=== PATIENT | female | born 1940 | race Caucasian/White ===

== ENCOUNTER 2023-02-05 07:25 | Outpatient (AMB) | payer MEDICARE, SELFPAY ==
--- NOTE | 2023-02-05 07:36 | MHC.PC.OV ---
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 Dementia Intake Note: New patient , mild dementia Rewards Consultant Required: No Accompanied by: Son Allergies No Known Allergies Allergy (Verified 02/05/23 07:54) Medication List - Last Reconciled 02/05/23 by Kathy Shah MD denosumab (Prolia) 60 mg subcut [id number] donepezil 5 mg PO DAILY latanoprost 0.005% 1 drp ophthalmic (eye) DAILY lisinopril 10 mg PO DAILY 30 days omeprazole 40 mg PO DAILY polyethylene glycol 3350 (Miralax) 17 grams PO DAILY PRN 30 days Tobacco use date assessed: 02/05/23 Fall risk assessment: No Falls in past year Last assessed Fall Risk: 02/05/23 Dental Screening Dental Screen Date: 02/05/23 Did you have a dental visit in the last 12 months?: No Did you have a dental problem in the last 6 months where you did not have access to dental care?: No Was dental information given to patient?: No HPI HPI Comments History of Present Illness Details This is an 82-year-old female with hypertension, chronic GERD, chronic idiopathic constipation, osteoporosis, urge urinary incontinence and dementia that comes today accompanied by son which is her healthcare proxy to establish care. She lives in assisted living and is not compliant with her medications because she does not remember to take them. Blood pressure borderline. GERD stable with PPIs. Has constipation with less than 3 bowel movements per week and MiraLax works for her. Has osteoporosis and last Prolia dose was 2 weeks ago. Son does not recall when was the last bone density test. I will refer her to Rheumatology. Has urge urinary incontinence and wear liners. She is oriented only to person but not to time or place. [facility] Surgical History (Updated 02/05/23 @ 08:02 by Kathy Shah MD) History of cholecystectomy Family History (Updated 02/05/23 @ 08:08 by Kathy Shah MD) Mother No problems noted. Father No problems noted. Son Papillary carcinoma of thyroid Basal cell carcinoma of skin Social History (Updated 02/05/23 @ 08:08 by Kathy Shah MD) Housing: House Alcohol intake: current Alcohol intake frequency: holidays/special occasions only Alcohol type: wine Patient Tobacco Use Status: Former Tobacco user e-Cigarette/Vaping Use: Never Used Second Hand Smoke Exposure: No service: No Current occupational status: unemployed Cognitive needs: No Hearing needs: No Vision needs: Yes Questionnaire PHQ-9 Over the last 2 weeks, how often have you been bothered by any of the following problems? 1. Little interest or pleasure in doing things: not at all 2. Feeling down, depressed, or hopeless: not at all 3. Trouble falling or staying asleep, or sleeping too much: not at all 4. Feeling tired or having little energy: not at all 5. Poor appetite or overeating: not at all 6. Feeling bad about yourself - or that you are a failure or have let yourself or your family down: not at all 7. Trouble concentrating on things, such as reading the newspaper or watching television: not at all 8. Moving or speaking so slowly that other people could have noticed. Or the opposite - being so fidgety or restless that you have been moving around a lot more than usual: not at all 9. Thoughts that you would be better off or of hurting yourself in some way: not at all Total score: 0 Depression Screening Interpretation: Negative 37713 - PHQ-9 Billing: Yes Source: Developed by Drs. Larry Dumont, Josette Shah, Chau Bill and colleagues, with an educational stefanie from [employer]. Thrive Questionnaire Date Thrive assessed: 02/05/23 I am a: Patient What is your living situation today?: I have a steady place to live Within the past 12 months, did the food you bought not last and you didn't have the money to get more?: Never true Within the past 12 months, did you worry whether your food would run out before you got money to buy more?: Never true Do you have trouble paying for medicines?: No Do you have trouble getting transportation to medical appointments?: No Do you have trouble paying your heating and electricity bill?: No Do you have trouble taking care of your child, family member or friend?: No Do you have trouble with day-to-day activities such as bathing, preparing meals, shopping, managing finances, etc.?: No Are you currently unemployed and looking for a job?: No Are you interested in more education?: No Please select the resources that you would like help with: None Currently or been in a relationship where the following occur: no concerns reported AUDIT C Alcohol Use Questionnaire (AUDIT-C) 1. How often do you have a drink containing alcohol?: Monthly or less 2. How many drinks containing alcohol do you have on a typical day when you are drinking?: 1 or 2 3. How often do you have six or more drinks on one occasion?: Never Total Score: 1 Score Reviewed/Action Taken: No YURIY-7 AMB Questionnaire YURIY-7 Date YURIY - 7 assessed: 02/05/23 Feeling nervous, anxious, or on edge: 0 = Not at all Not being able to stop or control worryin = Not at all Worrying too much about different things: 0 = Not at all Trouble relaxin = Not at all Being so restless that it is hard to sit still: 0 = Not at all Becoming easily annoyed or irritable: 0 = Not at all Feeling afraid as if something awful might happen: 0 = Not at all Total YURIY-7 score (0-4 normal; 5-9 mild; 10-14 moderate; 15-21 severe): 0 Source: Developed by Drs. Larry Dumont, Josette Shah, Chau Bill and colleagues, with an educational stefanie from [employer]. YURIY-7 Assessment Billing YURIY-7 Assessment Tool: YURIY-7 Assessment 24878 Review of Systems Const All systems reviewed & are unremarkable except as noted in HPI and below Eyes Reports no additional complaints, Denies change in vision and Denies other visual disturbances ENT Reports hearing loss Card Denies chest pain at rest, Denies chest pain with activity, Denies edema, Denies irregular heart rhythm, Denies claudication, Denies dyspnea, Denies dyspnea on exertion, Denies orthopnea, Denies paroxysmal nocturnal dyspnea and Denies slow heart rate Resp Denies cough, Denies dyspnea and Denies dyspnea on exertion GI Denies abdominal pain, Denies change in bowel habits, Denies excessive flatus, Denies nausea and Denies vomiting Reports urinary incontinence, Denies urinary hesitancy and Denies urinary urgency Musc Denies abnormal gait, Denies atrophy, Denies deformity and Denies limited range of motion Skin/Breast Denies bleeding lesions, Denies changing lesions and Denies rash Neuro Denies abnormal gait, Denies lack of coordination and Reports memory loss Psych Reports memory loss Physical exam (Primary Care) Vital Signs: Last Vital Signs BP 140/80 H 02/05/23 09:12 BMI result Body Mass Index 25.0 Tobacco/Smoking Status: Tobacco use Status Tobacco use date assessed 02/05/23 02/05/23 07:50 Patient Tobacco Use Status Former Tobacco user 02/05/23 08:08 e-Cigarette/Vaping Use Never Used 02/05/23 08:08 PHQ-9: PHQ-9 Score PHQ-9: Total score 0 02/05/23 09:12 Depression Screening Interpretation: Negative Thrive Assessment: Date of Thrive Assessment Date Thrive assessed 02/05/23 02/05/23 07:50 Currently or been in a relationship where the following occur: no concerns reported Const Orientation/consciousness: patient oriented x3 Eyes General: appearance normal, both eyes and all related structures Eyelids: Yes eyelids normal Conjunctivae: conjunctivae normal Neck Neck: Yes normal visual inspection and Yes supple Resp Effort & Inspection: normal respiratory effort Auscultation: clear to auscultation bilaterally Cardio Jugular venous distension: no JVD Rate: regular rate Rhythm: regular rhythm Heart sounds: S1 normal heart sound present and S2 normal heart sound present Neuro General: patient oriented x3 and no focal motor deficits Extrem General: Yes full ROM Office Procedures Advance Care Planning Advance Care Planning discussion: Exists, not on file Date of discussion: 02/05/23 Who was present: Son, patient and me Forms completed: Health Care Proxy Time spent: 1-15 minutes, on File Actual minutes spent: 2 Assessment and Plan Assessment & Plan (1) Dementia: Code(s): F03.90 - Unspecified dementia, unspecified severity, without behavioral disturbance, psychotic disturbance, mood disturbance, and anxiety Plan: Continue donepezil. Referred to neurology. (2) Chronic GERD: Code(s): K21.9 - Gastro-esophageal reflux disease without esophagitis Plan: Continue PPIs (3) Essential hypertension: Code(s): I10 - Essential (primary) hypertension Plan: Continue lisinopril. Blood pressure goal is equal or less than 130/80. (4) Chronic idiopathic constipation: Code(s): K59.04 - Chronic idiopathic constipation Plan: Restart MiraLax as needed. (5) Urge urinary incontinence: Code(s): N39.41 - Urge incontinence Plan: Continue liner pads 3 times a day as needed. (6) Osteoporosis: Code(s): M81.0 - Age-related osteoporosis without current pathological fracture Plan: Referred to rheumatology. Orders: Orders Lipid Panel Today I10 - Essential (primary) hypertension Comprehensive [place]. Panel Fast Today I10 - Essential (primary) hypertension Complete Blood Count Auto Diff Today D64.9 - Anemia, unspecified, F03.90 - Unspecified dementia, unspecified severity, without behavioral disturbance, psychotic disturbance, mood disturbance, and anxiety Vitamin B12 and Folate Today E53.8 - Deficiency of other specified B group vitamins, F03.90 - Unspecified dementia, unspecified severity, without behavioral disturbance, psychotic disturbance, mood disturbance, and anxiety Thyroid Stimulating Hormone Today F03.90 - Unspecified dementia, unspecified severity, without behavioral disturbance, psychotic disturbance, mood disturbance, and anxiety Vitamin D 25-OH Total Today E55.9 - Vitamin D deficiency, unspecified, M81.0 - Age-related osteoporosis without current pathological fracture Referrals Rheumatology Referral M81.0 - Age-related osteoporosis without current pathological fracture Ophthalmology Referral H40.9 - Unspecified glaucoma Neurology Referral F03.90 - Unspecified dementia, unspecified severity, without behavioral disturbance, psychotic disturbance, mood disturbance, and anxiety Medications: New polyethylene glycol 3350 (Miralax) 17 grams PO DAILY 30 days PRN 510 grams 2RF constipation lisinopril 10 mg PO DAILY 30 days 30 tabs 2RF incontinence pad, liner, disp Use 1 pad three times a day 90 ea 11RF N39.41 - Urge incontinence Coding Level of Care Code New Pt Level 4 (54494) Diagnoses Dementia F03.90 Chronic GERD K21.9 Essential hypertension I10 Chronic idiopathic constipation K59.04 Urge urinary incontinence N39.41 Osteoporosis M81.0 CPT Codes Advance Care Planning - Time spent: 1-15 minutes, on File ([id number]) Additional Codes YURIY-7 Assessment Billing - YURIY-7 Assessment Tool: YURIY-7 Assessment 00658 ([id number]) Time Spent (min) 23
[2023-02-05 07:38] VITALS: BP 160/90; BMI 25.0
[2023-02-05 09:12] VITALS: BP 140/80
== END 2023-02-05 08:28 | disposition home or self-care (01) ==
PROVIDERS: PCP Internal Medicine; Visit Provider Internal Medicine
DX: F03.90 Unspecified dementia, unspecified severity, without behavioral disturbance, psychotic disturbance, mood disturbance, and anxiety (principal); K21.9 Gastro-esophageal reflux disease without esophagitis; I10 Essential (primary) hypertension; K59.04 Chronic idiopathic constipation; N39.41 Urge incontinence; M81.0 Age-related osteoporosis without current pathological fracture; Z71.89 Other specified counseling
CPT/HCPCS: 1123F; 99204

== ENCOUNTER 2023-09-19 17:10 | Outpatient (AMB) | payer MEDICARE, SELFPAY ==
--- NOTE | 2023-09-19 17:22 | A.OFFVIS_ITS ---
Intake Vital Signs 09/19/23 17:23 Height 5 ft Weight 135 lb BMI 26.4 BP 152/90 H Blood Pressure Location Lt brachial Position Sitting Pulse 67 Pulse Source Pulse Oximeter Pulse Oximetry (%) 97 Oxygen Delivery Method Room Air Intake Visit Reasons: AWV Intake Note: Patient here for an annual wellness visit Drug Safety Data Management Specialist Required: No Accompanied by: Son Allergies No Known Allergies Allergy (Verified 09/19/23 17:34) Medication List - Last Reconciled 09/19/23 by Kathy Shah MD donepezil 5 mg PO DAILY incontinence pad, liner, disp Use 1 pad three times a day latanoprost 0.005% 1 drp ophthalmic (eye) DAILY 30 days lisinopril 10 mg PO DAILY 90 days olanzapine 2.5 mg PO BEDTIME 90 days omeprazole 40 mg PO DAILY polyethylene glycol 3350 (Miralax) 17 grams PO DAILY PRN 30 days HPI HPI Comments History of Present Illness Details This is an 83 year old female that comes accompanied by her son which is her [facility] proxy for her annual wellness exam. She currently lives in assisted living. PPP handed to gang head saw operator which is the main historian. No acute complaints. Walks with a cane. She has dementia and is not oriented to time or person but she is aware she is in [place], [place]. BP elevated today and staff member from her place give her the medications. [facility] Surgical History History of cholecystectomy Family History Mother No problems noted. Father No problems noted. Son Papillary carcinoma of thyroid Basal cell carcinoma of skin Social History Housing: House Alcohol intake: current Alcohol intake frequency: holidays/special occasions only Alcohol type: wine Patient Tobacco Use Status: Former Tobacco user e-Cigarette/Vaping Use: Never Used Second Hand Smoke Exposure: No service: No Current occupational status: unemployed Cognitive needs: No Hearing needs: No Vision needs: Yes Questionnaire Medicare Wellness Checkup What is your age?: 82 or older What gender do you identify with?: female During the past 4 weeks, how much have you been bothered by emotional problems such as feeling anxious, depressed, irritable, sad or downhearted, and blue?: not at all During the past 4 weeks, has your physical & emotional health limited your social activities with family, friends, neighbors, or groups?: not at all During the past 4 weeks, how much bodily pain have you generally had?: no pain During the past 4 weeks, was someone available to help you if you needed & wanted help?: yes, as much as I wanted During the past 4 weeks, what was the hardest physical activity you could do for at least 2 minutes?: very light Can you get to places out of walking distance without help? (For eg., can you travel alone on buses, taxis or drive your car?): No Can you go shopping for groceries or clothes without someone's help?: No Can you do your housework without help?: No Because of any health problems, do you need the help of another person with your personal care needs such as eating, bathing, dressing or getting around the house?: Yes Can you handle your own money without help?: No During the past 4 weeks, how would you rate your health in general?: good During the past 4 weeks how have things been going for you?: pretty well Are you having difficulties driving your car?: not applicable, I don't use a car Do you always fasten your seat belt when you are in a car?: yes, usually During past 4 weeks, have you been bothered by the following: never: Falling or dizzy when standing up, Sexual problems?, Trouble eating well?, Teeth or denture problems?, Problems using the telephone? and Tiredness or fatigue? Have you fallen 2 or more times in the past year?: No Are you afraid of falling?: Yes Are you a smoker?: no During the past 4 weeks, how many drinks of wine, beer, or other alcoholic beverages did you have?: no alcohol at all Do you exercise for about 20 minutes 3 or more times a week?: no, I usually do not exercise this much Have you been given information to help with the following?: yes: Hazards in your house that might hurt you? and yes: Keeping track of your medications? How often do you have trouble taking medicines the way you have been told to take them?: I always take medicine as prescribed How confident are you that you can control & manage most of your health problems?: not very confident What is your race?: White Mini Mental State Exam (MMSE) Orientation Where are we (state) (county) (town or city) (hospital) (floor)?: state, hospital/clinic and floor Registration Name of 3 unrelated objects clearly and slowly, then ask patient to repeat all 3 of them. (1st repeat determines score. Make sure they can repeat all three): object 1, object 2 and object 3 Attention & Calculation (CHOOSE ONE) Spell WORLD backwards (DLROW): 5 letters Language Show patient a wristwatch & ask what it is. Repeat for pencil.: watch and pencil Ask the patient to 'take a piece of paper with their right hand' 'fold paper in half' 'place paper on floor': take paper in right hand, fold paper in half and place paper on floor Print the sentence 'CLOSE YOUR EYES' on a piece. If patient actually closes eyes then score.: followed written direction Give patient a blank piece of paper & ask to write a sentence. Score if it contains a noun & verb.: sentence contains subject and verb Ask patient to copy figure of intersecting pentagons exactly. Score if all 10 angles & 2 intersects are included.: all 10 angles present & 2 are intersected Score Score: 19 Activity of Daily Living Bathing - sponge bath, tub bath or shower: receives help in bathing only one body part (such as back or leg) Dressing - getting clothes from closets & drawers, including inner/outer garments & fasteners.: gets clothes & gets completely dressed without help Continence: has occasional 'accidents' Feeding: feeds self without help Total Score: 0 Information obtained from: informant Using telephone: independent Traveling: dependent Shopping: dependent Preparing meals: dependent Housework: dependent Taking medicine: dependent Managing money: dependent PHQ-9 Over the last 2 weeks, how often have you been bothered by any of the following problems? 1. Little interest or pleasure in doing things: not at all 2. Feeling down, depressed, or hopeless: several days 3. Trouble falling or staying asleep, or sleeping too much: several days 4. Feeling tired or having little energy: not at all 5. Poor appetite or overeating: not at all 6. Feeling bad about yourself - or that you are a failure or have let yourself or your family down: not at all 7. Trouble concentrating on things, such as reading the newspaper or watching television: not at all 8. Moving or speaking so slowly that other people could have noticed. Or the opposite - being so fidgety or restless that you have been moving around a lot more than usual: not at all 9. Thoughts that you would be better off or of hurting yourself in some way: not at all Total score: 2 Depression Screening Interpretation: Negative Depression Screening Done: Yes 22821 - PHQ-9 Billing: Yes Source: Developed by Drs. Larry Dumont, Josette Shah, Chau Bill and colleagues, with an educational stefanie from [employer]. YURIY-7 AMB Questionnaire YURIY-7 Date YURIY - 7 assessed: 09/19/23 Feeling nervous, anxious, or on edge: 0 = Not at all Not being able to stop or control worryin = Not at all Worrying too much about different things: 0 = Not at all Trouble relaxin = Not at all Being so restless that it is hard to sit still: 0 = Not at all Becoming easily annoyed or irritable: 0 = Not at all Feeling afraid as if something awful might happen: 0 = Not at all Total YURIY-7 score (0-4 normal; 5-9 mild; 10-14 moderate; 15-21 severe): 0 Source: Developed by Drs. Larry Dumont, Josette Shah, Chau Bill and colleagues, with an educational stefanie from [employer]. YURIY-7 Assessment Billing YURIY-7 Assessment Tool: YURIY-7 Assessment 66251 Review of Systems Const All systems reviewed & are unremarkable except as noted in HPI and below Eyes Reports no additional complaints, Denies change in vision and Denies other visual disturbances Card Denies chest pain at rest, Denies chest pain with activity, Denies edema, Denies irregular heart rhythm, Denies claudication, Denies dyspnea, Denies dyspnea on exertion, Denies orthopnea, Denies paroxysmal nocturnal dyspnea and Denies slow heart rate Resp Denies cough, Denies dyspnea and Denies dyspnea on exertion GI Denies abdominal pain, Denies change in bowel habits, Denies excessive flatus, Denies nausea and Denies vomiting Physical Exam Vital Signs: Last Vital Signs Pulse 67 09/19/23 17:23 BP 152/90 H 09/19/23 17:23 Pulse Ox 97 09/19/23 17:23 Oxygen Delivery Method Room Air 09/19/23 17:23 BMI result Body Mass Index 26.4 Neck Neck: Yes normal visual inspection and Yes supple Resp Auscultation: clear to auscultation bilaterally Cardio Jugular venous distension: no JVD Rate: regular rate Rhythm: regular rhythm Heart sounds: S1 normal heart sound present and S2 normal heart sound present Skin General skin exam: no rashes or lesions noted Neuro General: no focal motor deficits Romberg Test: Negative Extrem General: Yes full ROM Psych Appearance: grossly normal Assessment & Plan Assessment & Plan (1) Encounter for Medicare annual wellness exam: Code(s): Z00.00 - Encounter for general adult medical examination without abnormal findings Plan: Repeat in a year. (2) Dementia: Code(s): F03.90 - Unspecified dementia, unspecified severity, without behavioral disturbance, psychotic disturbance, mood disturbance, and anxiety Qualifiers: Dementia type: Alzheimer's Alzheimer's disease onset: unspecified onset Dementia behavioral or psychological symptom: without behavioral, psychotic, or mood disturbance or anxiety Plan: Continue donepezil. Quality Reporting (2019) Depression/Bipolar (159/160/161/177) PHQ-9: Total score: 2 Coding Level of Care Code Medicare First (G0438) Diagnoses Encounter for Medicare annual wellness exam Z00.00 Dementia F03.90 Dementia type: Alzheimer's Alzheimer's disease onset: unspecified onset Dementia behavioral or psychological symptom: without behavioral, psychotic, or mood disturbance or anxiety CPT Codes Advance Care Planning - Time spent: 1-15 minutes, on File ([id number]) Additional Codes YURIY-7 Assessment Billing - YURIY-7 Assessment Tool: YURIY-7 Assessment 13393 ([id number]) Time Spent (min) 38 Advance Care Planning Advance Care Planning discussion: Exists, not on file Date of discussion: 09/20/23 Who was present: son(healthcare proxy), patient and me Forms completed: Health Care Proxy Time spent: 1-15 minutes, on File Actual minutes spent: 1
[2023-09-19 17:23] VITALS: BP 152/90; PULSE 67; O2SAT 97; BMI 26.4
== END 2023-09-19 18:08 | disposition home or self-care (01) ==
PROVIDERS: PCP Internal Medicine; Visit Provider Internal Medicine
DX: Z00.00 Encounter for general adult medical examination without abnormal findings (principal); F03.90 Unspecified dementia, unspecified severity, without behavioral disturbance, psychotic disturbance, mood disturbance, and anxiety
CPT/HCPCS: 1123F; G0438

== ENCOUNTER 2024-06-22 11:03 | Outpatient (AMB) | payer MEDICARE, SELFPAY ==
--- NOTE | 2024-06-22 11:24 | A.OFFPC_ITS ---
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 Accompanied by: Son Allergies No Known Allergies Allergy (Verified 06/22/24 11:37) Medication List - Last Reconciled 06/22/24 by Kathy Shah MD donepezil 5 mg PO DAILY incontinence pad, liner, disp Use 1 pad three times a day latanoprost 0.005% 1 drp ophthalmic (eye) DAILY 30 days lisinopril 10 mg PO DAILY 90 days olanzapine 2.5 mg PO BEDTIME 90 days omeprazole 40 mg PO DAILY polyethylene glycol 3350 (Miralax) 17 grams PO DAILY PRN 30 days Tobacco use date assessed: 06/22/24 Fall risk assessment: No Falls in past year Last assessed Fall Risk: 06/22/24 Dental Screening Dental Screen Date: 06/22/24 Did you have a dental visit in the last 12 months?: No Did you have a dental problem in the last 6 months where you did not have access to dental care?: No Was dental information given to patient?: Patient has dentist HPI HPI Comments History of Present Illness Details The patient is an 84-year-old female presenting with chronic right hip and lumbar radiculopathy. The pain has been persistent for at least a year and is reportedly aggravated by walking and physical activity, necessitating frequent rest breaks. The pain radiates down the right leg to the foot, which complicates ambulation significantly. There are no associated symptoms of fever, bowel, or bladder incontinence. The patient has a history of receiving osteoporosis treatment in the form of bi-annual injections, suspected to be denosumab (Prolia), though she has not had an injection since relocating from [place] to an assisted living facility in [place]. Despite this treatment, walking has become increasingly challenging, highlighting the need for further evaluation. No traumatic incidents have been linked to the onset of this pain. [facility] Surgical History History of cholecystectomy Family History Mother No problems noted. Father No problems noted. Son Papillary carcinoma of thyroid Basal cell carcinoma of skin Social History Housing: House Alcohol intake: current Alcohol intake frequency: holidays/special occasions only Alcohol type: wine Patient Tobacco Use Status: Former Tobacco user e-Cigarette/Vaping Use: Never Used Second Hand Smoke Exposure: No service: No Current occupational status: unemployed Cognitive needs: No Hearing needs: No Vision needs: Yes Questionnaire Thrive Questionnaire Date Thrive assessed: 06/22/24 I am a: Patient What is your living situation today?: I have a steady place to live Within the past 12 months, did the food you bought not last and you didn't have the money to get more?: Never true Within the past 12 months, did you worry whether your food would run out before you got money to buy more?: Never true Do you have trouble paying for medicines?: No Do you have trouble getting transportation to medical appointments?: No Do you have trouble paying your heating and electricity bill?: No Do you have trouble taking care of your child, family member or friend?: No Do you have trouble with day-to-day activities such as bathing, preparing meals, shopping, managing finances, etc.?: No Are you currently unemployed and looking for a job?: No Are you interested in more education?: No Please select the resources that you would like help with: None Currently or been in a relationship where the following occur: No concerns reported THRIVE Score: 0 AUDIT C Alcohol Use Questionnaire (AUDIT-C) 1. How often do you have a drink containing alcohol?: Monthly or less 2. How many drinks containing alcohol do you have on a typical day when you are drinking?: 1 or 2 3. How often do you have six or more drinks on one occasion?: Never Total Score: 1 YURIY-7 AMB Questionnaire YURIY-7 Date YURIY - 7 assessed: 09/19/23 Source: Developed by Drs. Larry Dumont, Josette Shah, Chau Bill and colleagues, with an educational stefanie from [employer]. Review of Systems Const All systems reviewed & are unremarkable except as noted in HPI and below ENT Reports hearing loss Card Denies chest pain at rest, Denies chest pain with activity, Denies edema, Denies irregular heart rhythm, Denies claudication, Denies dyspnea, Denies dyspnea on exertion, Denies orthopnea, Denies paroxysmal nocturnal dyspnea and Denies slow heart rate Resp Denies cough, Denies dyspnea and Denies dyspnea on exertion GI Denies abdominal pain, Denies change in bowel habits, Denies excessive flatus, Denies nausea and Denies vomiting Reports urinary incontinence Musc Reports back pain, Reports numbness, Reports radiating pain into limb and Reports tingling Skin/Breast Reports lesions Neuro Reports memory loss, Reports numbness and Reports tingling Psych Reports memory loss Physical exam (Primary Care) Vital Signs: Last Vital Signs BP 120/72 06/22/24 11:27 BMI result Body Mass Index 26.0 Tobacco/Smoking Status: Tobacco use Status Tobacco use date assessed 06/22/24 06/22/24 11:32 Patient Tobacco Use Status Former Tobacco user 06/22/24 11:27 e-Cigarette/Vaping Use Never Used 06/22/24 11:27 Thrive Assessment: Date of Thrive Assessment Date Thrive assessed 06/22/24 06/22/24 11:27 Currently or been in a relationship where the following occur: No concerns reported Const General: cooperative Orientation/consciousness: oriented to person Limitations: ambulation with cane Resp Effort & Inspection: normal respiratory effort Auscultation: clear to auscultation bilaterally Cardio Jugular venous distension: no JVD Rate: regular rate Rhythm: regular rhythm Heart sounds: S1 normal heart sound present and S2 normal heart sound present Back/Spine/Pelvis Thoracic/Lumbar Spine: straight leg raise positive right at 40 degrees Skin Lesions: lesion noted (scaly in face) Neuro General: oriented to person Extrem General: Yes full ROM Coding Level of Care Code Est Pt Level 4 (56961) Complex EM visit Add On G2211 Diagnoses Lumbar pain M54.50 Right hip pain M25.551 Hearing loss, right H91.91 Urge urinary incontinence N39.41 Skin lesion L98.9 Osteoporosis M81.0 Dementia F03.90 Dementia type: Alzheimer's Alzheimer's disease onset: unspecified onset Dementia behavioral or psychological symptom: without behavioral, psychotic, or mood disturbance or anxiety Time Spent (min) 24 Assessment & Plan Assessment & Plan (1) Lumbar pain: Code(s): M54.50 - Low back pain, unspecified Category: Medical (2) Right hip pain: Code(s): M25.551 - Pain in right hip Category: Medical (3) Hearing loss, right: Code(s): H91.91 - Unspecified hearing loss, right ear Category: Medical (4) Urge urinary incontinence: Code(s): N39.41 - Urge incontinence Category: Medical (5) Skin lesion: Code(s): L98.9 - Disorder of the skin and subcutaneous tissue, unspecified Category: Medical (6) Osteoporosis: Code(s): M81.0 - Age-related osteoporosis without current pathological fracture Category: Medical (7) Dementia: Code(s): F03.90 - Unspecified dementia, unspecified severity, without behavioral disturbance, psychotic disturbance, mood disturbance, and anxiety Category: Medical Qualifiers: Dementia type: Alzheimer's Alzheimer's disease onset: unspecified onset Dementia behavioral or psychological symptom: without behavioral, psychotic, or mood disturbance or anxiety Plan - Chronic Hip and Lumbar Radiculopathy: Initiate diagnostic imaging with X-rays of the lumbar spine and right hip to assess underlying causes contributing to radiculopathy. Consider referral to pain management for local treatments, such as injections. - Osteoporosis: Schedule a bone density test to evaluate current bone health and manage osteoporosis appropriately. - Sensorineural Hearing Loss: Arrange a hearing test to assess the extent of hearing impairment for further management. - Urinary Incontinence: Continue with the provision of urinary incontinence supplies. Consider further evaluation by a urologist if interventions are ineffective. - Dermatologic Concerns: Confirm referral to dermatology for evaluation of facial abrasions. Patient was informed and verbally consented to the use of an ambient scribe for clinic note documentation during this visit. I discussed with the patient and her caregiver the concerns regarding chronic radicular pain and its impact on her mobility and quality of life. We agreed on the necessity of ordering spinal and hip X-rays to elucidate potential causes and plan appropriate interventions. I emphasized the potential for pain management strategies, including targeted injections, and suggested a referral to a pain specialist. Additionally, osteoporosis management was addressed through a bone density scan to gauge current bone health. The need for a hearing test was also highlighted, given the noted hearing loss. I reviewed her use of adult diapers for urinary incontinence and the potential need for further evaluation. Dermatology referral status was checked, and further communication with the dermatology department was planned. Follow-up arrangements were discus sed to ensure all aspects of care are coordinated. Orders: Orders XR hip RT min 2V Today M25.551 - Pain in right hip XR lumbar spine 2-3V Today M54.50 - Low back pain, unspecified XR DEXA axial skeleton Today Z78.0 - Asymptomatic menopausal state Referrals Speech and Hearing Referral H91.91 - Unspecified hearing loss, right ear Pain Management Referral M25.551 - Pain in right hip, M54.50 - Low back pain, unspecified Medications: New [adult diapers pull-ups] Use 1 diaper 8 times a day 240 ea 11RF F03.90 - Unspecified dementia, unspecified severity, without behavioral disturbance, psychotic disturbance, mood disturbance, and anxiety, N39.41 - Urge incontinence Patient Instructions: - Proceed with X-rays for lumbar spine and right hip today if possible. - Await instructions on scheduling a bone density test. - Attend scheduled hearing test. - Continue using pull-up adult diapers for urinary incontinence as needed. - Monitor for any new or worsening symptoms and seek care accordingly.
[2024-06-22 11:27] VITALS: BP 120/72; BMI 26.0
== END 2024-06-22 11:55 | disposition home or self-care (01) ==
PROVIDERS: PCP Internal Medicine; Visit Provider Internal Medicine
DX: M54.50 Low back pain, unspecified (principal); F03.90 Unspecified dementia, unspecified severity, without behavioral disturbance, psychotic disturbance, mood disturbance, and anxiety; M25.551 Pain in right hip; H91.91 Unspecified hearing loss, right ear; N39.41 Urge incontinence; L98.9 Disorder of the skin and subcutaneous tissue, unspecified; M81.0 Age-related osteoporosis without current pathological fracture

== ENCOUNTER → 2024-06-22 11:03 | Outpatient (BNVA) | payer MEDICARE, SELFPAY | PROVIDERS: PCP Internal Medicine; Visit Provider Internal Medicine | DX: M54.50 Low back pain, unspecified (principal); M25.551 Pain in right hip; H91.91 Unspecified hearing loss, right ear; N39.41 Urge incontinence; L98.9 Disorder of the skin and subcutaneous tissue, unspecified; M81.0 Age-related osteoporosis without current pathological fracture; F03.90 Unspecified dementia, unspecified severity, without behavioral disturbance, psychotic disturbance, mood disturbance, and anxiety | CPT/HCPCS: 99212 ==

== ENCOUNTER 2024-07-09 10:49 | Outpatient (REF) | payer MEDICARE, SELFPAY ==
--- NOTE | ~2024-07-09 | XR_ITS ---
EXAMINATION: XR HIP, RIGHT CLINICAL INFORMATION: M25.551 - Pain in right hip COMPARISON: None available. TECHNIQUE: Two views of the right hip. FINDINGS: The acetabular and pubic margins are intact. No significant joint space narrowing. The humeral head and neck appear intact. There is small spurring of the right greater trochanter. No distinct erosive process. XR/XR hip RT min 2V IMPRESSION: No acute process. Small spurring of the right greater trochanter. Electronically signed by: Jony Muhammad MD 07/09/2024 03:08 PM [facility]
--- NOTE | ~2024-07-09 | XR_ITS ---
EXAMINATION: XR LUMBOSACRAL SPINE CLINICAL INFORMATION: M54.50 - Low back pain, unspecified COMPARISON: None available. TECHNIQUE: Three views of the lumbosacral spine. FINDINGS: Thoracolumbar dextroscoliosis. Wedge compression deformities at T12 and L1 of uncertain age. Multilevel spondylosis and degenerative disc space narrowing L2-S1. There is multilevel facet arthrosis. Sacrum grossly intact. XR/XR lumbar spine 2-3V IMPRESSION: 1. Wedge compression deformities at T12 and L1 of uncertain age. 2. Multilevel degenerative changes. Electronically signed by: Jony Muhammad MD 07/09/2024 03:07 PM [facility]
== END 2024-07-09 10:50 | disposition home or self-care (01) ==
LOC: HO.XRAY 10:49
PROVIDERS: PCP Internal Medicine; Visit Provider Internal Medicine
DX: M25.551 Pain in right hip (principal); M54.50 Low back pain, unspecified; M47.816 Spondylosis without myelopathy or radiculopathy, lumbar region
CPT/HCPCS: 72100; 73502; 99202

== ENCOUNTER 2024-07-09 11:37 | Outpatient (AMB) | payer MEDICARE, SELFPAY ==
--- NOTE | 2024-07-09 11:40 | A.OFFVIS_ITS ---
Vital Signs 07/09/24 11:46 Height 5 ft Weight 130 lb BMI 25.4 BP 128/62 Blood Pressure Location Lt brachial Position Sitting Pulse 68 Pulse Source Pulse Oximeter Pulse Oximetry (%) 97 Oxygen Delivery Method Room Air Intake Visit Reasons: Pain in right hip Intake Note: Pain today 8 Bid Manager Required: No Accompanied by: Son Allergies No Known Allergies Allergy (Verified 06/22/24 11:37) HPI Comments Details: Mary Watson is a very pleasant 84-year-old female who presents to the office today, accompanied by her son, for evaluation management of her chronic lower back pain Past medical history significant for dementia, Alzheimer's, osteoporosis, incontinence, constipation glaucoma, GERD, hypertension, chronic back pain Exam limited secondary to patient's dementia/Alzheimer's and physical limitations. Much of the exam questions were answered by her son. They endorse right lower back pain that has been going on for ?years?. It has significantly been getting worse now is impacting her quality of life. It is making it very difficult for her to ambulate. Patient lives in an assisted living facility where they provide very limited assistance. Patient is currently not taking anything for her pain, her son states she has [id number] Tylenol in her apartment but she forgets to take it due to her Alzheimer's. If he is not there to give it to her she will go without any medication. The only way that they can Has the facility given to her as if it as prescribed. He is hoping that medications can be prescribed today so the staff will assist. Patient endorses right lower back pain without radiation down the extremity. Tenderness to palpation and worse with movement. Worse with walking and standing. Denies any recent falls, trauma, injury. Pain today is rated as an 8/10, constant and worse throughout the day. Denies previous attempts at physical therapy, chiropractor, acupuncture, massage or injections PCP ordered x-rays, those were completed just prior to her visit today. No results are available for review at this time. In terms of muscle damage condition is described as aching, throbbing, dull, tiring, squeezing Pain is negatively impacting patient's enjoyment of life, general activity, mood, recreational activities, walking, ability to care for herself, ability perform activities of daily living Denies current use of anticoagulants Denies implantable devices, pacemaker defibrillator Denies current use of nicotine, tobacco, alcohol or illicit substances [facility] Surgical History History of cholecystectomy Family History Mother No problems noted. Father No problems noted. Son Papillary carcinoma of thyroid Basal cell carcinoma of skin Social History Housing: House Alcohol intake: current Alcohol intake frequency: holidays/special occasions only Alcohol type: wine Patient Tobacco Use Status: Former Tobacco user e-Cigarette/Vaping Use: Never Used Second Hand Smoke Exposure: No service: No Current occupational status: unemployed Cognitive needs: No Hearing needs: No Vision needs: Yes Review of Systems Const All systems reviewed & are unremarkable except as noted in HPI and below Physical Exam Vital Signs: Last Vital Signs Pulse 68 07/09/24 11:46 BP 128/62 07/09/24 11:46 Pulse Ox 97 07/09/24 11:46 Oxygen Delivery Method Room Air 07/09/24 11:46 BMI result Body Mass Index 25.4 General: awake, alert, pleasantly confused. Skin: warm, dry, intact HEENT: Normocephalic. Hearing intact. Cardiac: External chest normal in appearance. Respiratory: No cough, audible wheezing or stridor. Abdomen: without gross distension. MS: No obvious swelling or deformities. Able to transition from sit to stand unassisted. Ambulates with antalgic gait with slight forward flexion, utilizing a cane. Tenderness over right lumbar vertebrae and lumbar paraspinal muscles No pain with internal/external rotation of the right hip Nontender over right GTB SLR negative bilaterally Nontender over bilateral PSIS Limited physical exam secondary to patient's physical limitations Psychiatric: Appropriate mood and affect. Assessment & Plan Assessment & Plan (1) Lumbar pain: Code(s): M54.50 - Low back pain, unspecified Category: Medical (2) Lumbar spondylosis: Code(s): M47.816 - Spondylosis without myelopathy or radiculopathy, lumbar region Category: Medical Plan Patient presented to the office today for evaluation management of her chronic back pain Order placed for PT eval and treat through visiting nurses as patient lives in assisted living. She has dementia/Alzheimer's is unable to get to appointments. Tylenol 500 mg p.o. twice daily Celebrex 50 mg p.o. twice daily. Take with food. Do not take with any other nonsteroidal anti-inflammatory medications. Prescription was sent for Rollator walker. All questions and concerns were answered, patient/son agree with the plan. Follow up after physical therapy, sooner if needed. Orders: Referrals [facility] Referral M47.816 - Spondylosis without myelopathy or radiculopathy, lumbar region, M54.50 - Low back pain, unspecified Medications: New acetaminophen (Tylenol Extra Strength) 500 mg PO BID 60 tabs 2RF pain celecoxib (Celebrex) 50 mg PO BID 60 caps 2RF walker As directed Rollator Walker 1 ea 0RF Coding Level of Care Code New Pt Level 4 (27612) Complex EM visit Add On G2211 Diagnoses Lumbar pain M54.50 Lumbar spondylosis M47.816
[2024-07-09 11:46] VITALS: BP 128/62; PULSE 68; O2SAT 97; BMI 25.4
== END 2024-07-09 12:22 | disposition home or self-care (01) ==
PROVIDERS: PCP Internal Medicine; Visit Provider Registered Nurse Emergency
DX: M54.50 Low back pain, unspecified (principal); M47.816 Spondylosis without myelopathy or radiculopathy, lumbar region
CPT/HCPCS: 99204; G2211

== ENCOUNTER 2024-08-03 12:31 | Outpatient (REF) | payer MEDICARE, SELFPAY | END 2024-08-03 12:32 | disposition home or self-care (01) | LOC: HO.SH 12:31 | PROVIDERS: Visit Provider Internal Medicine | DX: H91.91 Unspecified hearing loss, right ear (principal) | CPT/HCPCS: 92567 ==

== ENCOUNTER 2024-08-06 12:38 | Outpatient (REF) | payer MEDICARE, SELFPAY ==
--- NOTE | ~2024-08-06 | MM_ITS ---
EXAMINATION: Dual-Energy X-ray Absorptiometry - Bone Density Study HISTORY: Estrogen deficiency TECHNIQUE: [employer] Dual energy absorptiometry (DEXA) of the lumbar spine, total left hip, and femoral neck was performed. COMPARISON: There are no prior studies for comparison. FINDINGS: The bone mineral density of the lumbar spine is 1.202 with a T-score of 0.3, and a Z-score of 2.3. The bone mineral density of the left total hip is 0.763 with a T-score of -1.9, and a Z-score of 0.3. The bone mineral density of the left femoral neck is 0.815 with a T-score of -1.6, and a Z-score of 0.7. FRACTURE RISK: The FRAX index suggests a risk of major osteoporotic fracture of 14.0%, and of hip fracture 3.8%. MM/XR DEXA axial skeleton IMPRESSION: Based on bone mineral density, and according to World Health Organization (WHO) criteria, the diagnosis is consistent with osteopenia. All bone density values are in grams per centimeter squared. At this facility, the least significant change in BMD with 95% confidence is 0.022 at the lumbar spine, 0.027 at the hip, and 0.023 at the distal 1/3 radius. Electronically signed by: Larry Otero MD 08/10/2024 12:49 PM [facility]
== END 2024-08-06 12:39 | disposition home or self-care (01) ==
LOC: HO.MAMMO 12:38
PROVIDERS: PCP Internal Medicine; Visit Provider Internal Medicine
DX: Z13.820 Encounter for screening for osteoporosis (principal); Z78.0 Asymptomatic menopausal state
CPT/HCPCS: 77080

== ENCOUNTER → 2024-08-06 13:30 | Outpatient (BNV) | payer MEDICARE, SELFPAY | PROVIDERS: PCP Internal Medicine; Visit Provider Radiology Diagnostic Radiology | DX: M85.89 Other specified disorders of bone density and structure, multiple sites (principal) | CPT/HCPCS: 77085 ==